=== PATIENT | male | born 1955 | race Caucasian/White ===

== ENCOUNTER 2019-01-10 10:56 | Emergency (ER) | payer OTHER ==
[~2019-01-10] VITALS: Ht 177.8 cm; Wt 86.0 kg
[2019-01-10] MEDS ORDERED: NITROGLYCERIN 0.4MG TABLET SL SL PRN (11:45)
[2019-01-10 12:18] LABS: BASOPHILS % 0.5 % (0.0-2.0); EOSINOPHILS % 2.3 % (0.0-5.0); HEMATOCRIT. 35.1 % (42.0-52.0); HEMOGLOBIN. 12.3 g/dL (14.0-18.0); LYMPHOCYTES % 36.3 % (20.0-50.0); MEAN CORPUSCULAR HEMOGLOBIN 31.5 pg (28.0-32.0); MEAN CORPUSCULAR VOLUME 89.8 fL (80.0-94.0); NEUTROPHILS % 52.9 % (40.0-76.0); PLATELET 160 x1000/uL (130-400); RED BLOOD CELL COUNT 3.91 mill/uL (4.7-6.1); RED CELL DISTRIBUTION WIDTH 13.4 % (11.6-14.6)
[2019-01-10 12:24] LABS: CHLORIDE 104 mEq/L (98-107)
[2019-01-10 12:29] LABS: D-DIMER < 0.19 mg/L FEU (<0.50); PARTIAL THROMBOPLASTIN TIME 26.2 sec (23.4-31.0); PROTHROMBIN TIME 10.8 sec (9.6-11.0)
[2019-01-10] MEDS ORDERED: MAGNESIUM/ALUMINUM HYDROXIDE/SIMETHICONE 30ML UDC PO ONE (13:45)
[2019-01-10 13:55] VITALS: BP 128/72
== END 2019-01-10 13:56 | disposition left against medical advice (07) ==
LOC: ER 10:56 → CANBEDREQ 14:38
DX: R07.89 Other chest pain (principal); I10 Essential (primary) hypertension; E78.00 Pure hypercholesterolemia, unspecified; I25.10 Atherosclerotic heart disease of native coronary artery without angina pectoris; Z98.61 Coronary angioplasty status
CPT/HCPCS: 36415; 71045; 83880; 84484; 85379; 93005; 99284